=== PATIENT | female | born 1960 | race Caucasian/White ===

== ENCOUNTER 2020-02-23 17:20 | Emergency (ER) | payer BC, OTHER ==
[2020-02-23] MEDS ORDERED: DIPHTH,PERTUSS(ACELL),TET 0.5 ML DISP.SYRIN IM ONE (17:31)
[2020-02-23 17:33] VITALS: BP 186/103; PULSE 65; TEMP 97.9; BMI 32.4
[2020-02-23] MEDS ORDERED: RABIES VACCINE (PCEC)/PF 2.5 UNIT/VIAL IM ONE ×2 (17:33→17:47)
== END 2020-02-23 18:06 | disposition home or self-care (01) ==
LOC: JERFT 17:20
PROC: 3E0234Z Introduction of Serum, Toxoid and Vaccine into Muscle, Percutaneous Approach (ICD-10-PCS; principal; 2020-02-23)
DX: S51.851D Open bite of right forearm, subsequent encounter (principal); Z29.14 Encounter for prophylactic rabies immune globulin
CPT/HCPCS: 90675; 99283-25

== ENCOUNTER 2022-04-26 12:38 | Emergency (ER) | payer BC, OTHER ==
[2022-04-26 12:49] VITALS: BP 170/100; PULSE 76; RESP 18; TEMP 98.2; BMI 29.9
== END 2022-04-26 13:56 | disposition home or self-care (01) ==
LOC: JERFT 12:38
DX: B37.9 Candidiasis, unspecified (principal)
CPT/HCPCS: 99283-25